=== PATIENT | male | born 1960 | race African-American/Black ===

== ENCOUNTER → 2024-11-20 | Day surgery (SDC) | payer BC ==
[~2024-11-20] MED LIST: ATORVASTATIN CA20 MG PO; BERBERINE500 MG PO; FENTANYL CITRATE/PF 100MCG/2 ML INJ ONE; GLIMEPIRIDE2 MG PO; LOSARTAN POTASS25 MG PO; MIDAZOLAM HCL 2 MG/2 ML VIAL ONE; MOUNJARO2.5 MG/0.5 SC; ONDANSETRON HCL INJ 2MG/ML 2ML 2 MG/ML VIAL ONE; VITAMIN D31250 MCG PO; [UNRECOGNIZED DRUG - OTHER] PO
[2024-11-20] MEDS: LACTATED RINGER'S 1,000 ML ONE (13:47)
[2024-11-20 14:33] VITALS: TEMP 98.7
[2024-11-20 14:55] VITALS: BP 149/91; PULSE 88; RESP 16; O2SAT 96
== END | disposition home or self-care (01) ==
LOC: OR 11:48
PROVIDERS: ATTEND Internal Medicine Gastroenterology
DX: Z12.11 Encounter for screening for malignant neoplasm of colon (principal); D12.4 Benign neoplasm of descending colon; D12.3 Benign neoplasm of transverse colon; D12.5 Benign neoplasm of sigmoid colon; K63.5 Polyp of colon; K64.8 Other hemorrhoids; I10 Essential (primary) hypertension; E11.9 Type 2 diabetes mellitus without complications; F17.210 Nicotine dependence, cigarettes, uncomplicated; Z79.85 Long-term (current) use of injectable non-insulin antidiabetic drugs; Z79.84 Long term (current) use of oral hypoglycemic drugs; Z79.899 Other long term (current) drug therapy; Z88.0 Allergy status to penicillin; Z01.810 Encounter for preprocedural cardiovascular examination
CPT/HCPCS: 36415; 45384; 45385; 82948; 93005; J2250; J2405; J3010; J7121